=== PATIENT | male | born 1935 | race African-American/Black ===

== ENCOUNTER 2020-11-25 11:25 | Inpatient (IN) | payer OTHER ==
[~2020-11-25] VITALS: Ht 170.2 cm; Wt 55.2 kg
[2020-11-25] VITALS (40 sets, daily range): BP systolic 58–177; BP diastolic 23–117
[2020-11-25] MEDS ORDERED: SODIUM CHLORIDE 0.9% 1,800 ML IV ONE (12:00)
[2020-11-25] MEDS ORDERED: PROPOFOL 10MG/ML 100ML 100 ML IV PRN ×2 (12:00→18:30)
[2020-11-25] MEDS ORDERED: NOREPINEPHRINE 8MG/250ML PMX 250 ML IV ONE ×2 (12:15→12:30)
[2020-11-25] MEDS ORDERED: VANCOMYCIN 750 MG PREMIX 150 ML IV SCH (12:15)
[2020-11-25] MEDS ORDERED: PIPERACILLIN/TAZ 3.375G PREMIX 50 ML IV NR (12:15)
[2020-11-25] MEDS ORDERED: PIPERACILLIN/TAZOBACTAM 3.375GM/50ML PREMIX IV ONE (12:15)
[2020-11-25 12:29] LABS: BG BASE EXCESS -5.2 mmol/L (-2.0-2.0); BG CARBOXYHEMOGLOBIN 0.2 % (0.5-1.5); BG DEOXYHEMOGLOBIN 0.5 % (0.0-5.0); BG FRACTION INSPIRED OXYGEN 100; BG HCO3 ACT 17.4 mmol/L (22.0-26.0); BG METHEMOGLOBIN 0.1 % (0.0-1.5); BG OXYGEN SATURATION 99.5 % (92.0-98.5); BG OXYHEMOGLOBIN 99.2 % (94.0-97.0); BG PCO2 26.8 mmHg (35.0-45.0); BG PH 7.431 (7.350-7.450); BG PO2 > 602.7 mmHg (75.0-100.0); BG SAMPLE SITE LEFT RADIAL; BG TOTAL HEMOGLOBIN 13.9 g/dL (12.0-18.0); BG VENT MODE VENT - AC
[2020-11-25 12:36] LABS: BASOPHILS % 0.2 % (0.0-2.0); EOSINOPHILS % 0.1 % (0.0-5.0); HEMATOCRIT. 41.1 % (42.0-52.0); HEMOGLOBIN. 13.7 g/dL (14.0-18.0); LYMPHOCYTES % 11.4 % (20.0-50.0); MEAN CORPUSCULAR HEMOGLOBIN 33.1 pg (28.0-32.0); MEAN CORPUSCULAR VOLUME 98.9 fL (80.0-94.0); MEAN PLATELET VOLUME 10.2 fl (7.4-10.4); MONOCYTES % 5.9 % (2.0-8.0); NEUTROPHILS % 82.4 % (40.0-76.0); PLATELET 156 x1000/uL (130-400); RED BLOOD CELL COUNT 4.15 mill/uL (4.7-6.1); RED CELL DISTRIBUTION WIDTH 15.2 % (11.6-14.6)
[2020-11-25 12:43] LABS: CHLORIDE 120 mEq/L (98-107)
[2020-11-25 12:47] LABS: ETHANOL BLOOD < 10 mg/dL
[2020-11-25] MEDS ORDERED: LIDOCAINE HCL 1% 20ML VIAL (Pyxis) INJ ONE (13:38)
[2020-11-25 13:49] LABS: CLARITY URINE TURBID (CLEAR); COLOR URINE YELLOW (YELLOW); KETONES URINE TRACE (NEGATIVE); LEUKOCYTE ESTERASE URINE 3+ (NEGATIVE); NITRITE URINE NEGATIVE (NEGATIVE); OCCULT BLOOD URINE 2+ (NEGATIVE); PH URINE 5.5 (4.5-8.0); PROTEIN URINE 2+ (NEGATIVE); SPECIFIC GRAVITY URINE 1.017 (1.005-1.030); UROBILINOGEN URINE 0.2 E.U./dL (0.2-1.0)
[2020-11-25 14:12] LABS: *AMPHETAMINES SCREEN URINE NEGATIVE (NEGATIVE); *BARBITURATES SCREEN URINE NEGATIVE (NEGATIVE); *BENZODIAZEPINES SCREEN URINE NEGATIVE (NEGATIVE); *COCAINE SCREEN URINE NEGATIVE (NEGATIVE); CANNABINOID URINE SCREEN NEGATIVE (NEGATIVE); METHADONE URINE SCREEN NEGATIVE (NEGATIVE); OPIATES URINE SCREEN NEGATIVE (NEGATIVE); PHENCYCLIDINE URINE SCREEN NEGATIVE (NEGATIVE)
[2020-11-25] MEDS ORDERED: IPRATROPIUM/ALBUTEROL 0.5-3(2.5)MG/3ML NEB HHN PRN (16:15)
[2020-11-25] MEDS ORDERED: ACETAMINOPHEN 650MG/20.3ML UDC GT PRN ×2 (16:15)
[2020-11-25] MEDS ORDERED: ONDANSETRON HCL 4MG/2ML INJ IV PRN (16:15)
[2020-11-25] MEDS ORDERED: CLONIDINE 0.1MG TABLET PO PRN (16:15)
[2020-11-25] MEDS ORDERED: CEFEPIME 1,000 MG in DEXTROSE 5% WATER 50 ML IV SCH (17:00)
[2020-11-25] MEDS ORDERED: LISI20TA31 PO (18:14)
[2020-11-25] MEDS ORDERED: KEPP500 PO (18:14)
[2020-11-25] MEDS ORDERED: CLOP75TA33 PO (18:14)
[2020-11-25] MEDS ORDERED: TAMS-11 PO (18:14)
[2020-11-25] MEDS ORDERED: AMLO10TA80 PO (18:14)
[2020-11-25] MEDS ORDERED: ATOR20TA PO (18:14)
[2020-11-25] MEDS: NOREPINEPHRINE 32 MG in DEXT 5% WATER 218 ML IV PRN ×2 (18:50→20:17)
[2020-11-25] MEDS: SODIUM CHLORIDE 0.45% 1,000 ML IV SCH (20:08)
[2020-11-25] MEDS: FENTANYL CITRATE/PF 2,500 MCG in SODIUM CHLORIDE 0.9% 200 ML IV PRN (20:19)
[2020-11-25] MEDS: PANTOPRAZOLE SODIUM 40 MG/VIAL IV SCH (20:32)
[2020-11-25] MEDS ORDERED: DEXTROSE 50% WATER 50ML SYRINGE IV PRN (21:00)
[2020-11-25 21:07] LABS: CREATINE KINASE MB FRACTION 11.7 ng/mL (0.5-3.6)
[2020-11-25] MEDS: CEFEPIME 1,000 MG in DEXTROSE 5% WATER 50 ML IV SCH (21:20)
[2020-11-25] MEDS ORDERED: LEVETIRACETAM 500MG PREMIX 100 ML IV NR (22:30)
[2020-11-26] VITALS (98 sets, daily range): BP systolic 38–173; BP diastolic 15–137
[2020-11-26] MEDS: INSULIN LISPRO 100 UNITS/ML SUBCUT SCH ×4 (00:27→23:20)
[2020-11-26] MEDS: NOREPINEPHRINE 32 MG in DEXT 5% WATER 218 ML IV PRN ×2 (01:20→16:43)
[2020-11-26] MEDS: SODIUM CHLORIDE 0.45% 1,000 ML IV SCH ×4 (02:48→21:00)
[2020-11-26] MEDS: BLOOD SUGAR DIAGNOSTIC STRIP TEST SCH ×5 (06:00→23:20)
[2020-11-26 06:15] LABS: HEMATOCRIT. 39.6 % (42.0-52.0); HEMOGLOBIN. 12.8 g/dL (14.0-18.0); MEAN CORPUSCULAR HEMOGLOBIN 32.4 pg (28.0-32.0); MEAN CORPUSCULAR VOLUME 100.1 fL (80.0-94.0); MEAN PLATELET VOLUME 9.8 fl (7.4-10.4); PLATELET 118 x1000/uL (130-400); RED BLOOD CELL COUNT 3.96 mill/uL (4.7-6.1); RED CELL DISTRIBUTION WIDTH 15.3 % (11.6-14.6)
[2020-11-26 06:31] LABS: PHOSPHORUS 4.1 mg/dL (2.5-4.9)
[2020-11-26] MEDS: PANTOPRAZOLE SODIUM 40 MG/VIAL IV SCH (08:33)
[2020-11-26] MEDS: LEVETIRACETAM 500MG PREMIX 100 ML IV SCH ×2 (08:34→21:00)
[2020-11-26 08:45] LABS: BG BASE EXCESS -2.3 mmol/L (-2.0-2.0); BG CARBOXYHEMOGLOBIN 0.3 % (0.5-1.5); BG DEOXYHEMOGLOBIN 0.8 % (0.0-5.0); BG FRACTION INSPIRED OXYGEN 40; BG HCO3 ACT 22.2 mmol/L (22.0-26.0); BG METHEMOGLOBIN 0.5 % (0.0-1.5); BG OXYGEN SATURATION 99.2 % (92.0-98.5); BG OXYHEMOGLOBIN 98.4 % (94.0-97.0); BG PCO2 37.5 mmHg (35.0-45.0); BG PH 7.391 (7.350-7.450); BG PO2 217.1 mmHg (75.0-100.0); BG SAMPLE SITE RIGHT RADIAL; BG VENT MODE VENT - AC
[2020-11-26] MEDS ORDERED: LEVETIRACETAM 500 MG in SODIUM CHLORIDE 0.9% 100 ML IV SCH (09:00)
[2020-11-26 09:23] LABS: PLATELET ESTIMATE DECREASED
[2020-11-26] MEDS ORDERED: DOPAMINE 800MG PREMIX (DOUBLE) 250 ML IV PRN ×2 (10:15→12:04)
[2020-11-26] MEDS: MIDODRINE HCL 5MG TABLET PO SCH ×3 (11:42→17:31)
[2020-11-26] MEDS: MIDAZOLAM HCL 100 MG in SODIUM CHLORIDE 0.9% 80 ML IV PRN (13:01)
[2020-11-26 13:37] LABS: AMYLASE 94 IU/L (25-115)
[2020-11-26] MEDS: LACTULOSE 20G/30ML UDC PO SCH ×2 (13:46→22:00)
[2020-11-26] MEDS: ENOXAPARIN 30MG/0.3ML SYR SUBCUT SCH (13:47)
[2020-11-26] MEDS: CEFEPIME 1,000 MG in DEXTROSE 5% WATER 50 ML IV SCH (21:00)
[2020-11-27] VITALS (97 sets, daily range): BP systolic 34–170; BP diastolic 14–105
[2020-11-27] MEDS: SODIUM CHLORIDE 0.45% 1,000 ML IV SCH ×3 (05:27→20:37)
[2020-11-27] MEDS: INSULIN LISPRO 100 UNITS/ML SUBCUT SCH ×4 (06:00→23:03)
[2020-11-27] MEDS: NOREPINEPHRINE 32 MG in DEXT 5% WATER 218 ML IV PRN (06:18)
[2020-11-27 06:37] LABS: CHLORIDE 117 mEq/L (98-107)
[2020-11-27 06:43] LABS: AMYLASE 74 IU/L (25-115)
[2020-11-27 06:46] LABS: PHOSPHORUS 2.8 mg/dL (2.5-4.9)
[2020-11-27] MEDS: LACTULOSE 20G/30ML UDC PO SCH ×3 (06:46→23:02)
[2020-11-27] MEDS: BLOOD SUGAR DIAGNOSTIC STRIP TEST SCH ×4 (06:48→23:03)
[2020-11-27 06:50] LABS: HEMATOCRIT. 29.2 % (42.0-52.0); MEAN CORPUSCULAR HEMOGLOBIN 32.9 pg (28.0-32.0); MEAN CORPUSCULAR VOLUME 95.9 fL (80.0-94.0); MEAN PLATELET VOLUME 10.1 fl (7.4-10.4); PLATELET 84 x1000/uL (130-400); RED BLOOD CELL COUNT 3.04 mill/uL (4.7-6.1); RED CELL DISTRIBUTION WIDTH 14.4 % (11.6-14.6)
[2020-11-27] MEDS: MIDODRINE HCL 5MG TABLET PO SCH ×2 (08:36→12:51)
[2020-11-27] MEDS: PANTOPRAZOLE SODIUM 40 MG/VIAL IV SCH (08:37)
[2020-11-27] MEDS: LEVETIRACETAM 500MG PREMIX 100 ML IV SCH ×2 (08:37→20:36)
[2020-11-27] MEDS: ENOXAPARIN 30MG/0.3ML SYR SUBCUT SCH (09:00)
[2020-11-27] MEDS ORDERED: POTASSIUM CHLORIDE 20MEQ/PACKET PO NR (10:00)
[2020-11-27 11:15] LABS: PLATELET ESTIMATE DECREASED
[2020-11-27] MEDS: METOCLOPRAMIDE HCL 10MG/2ML VIAL IV SCH ×2 (17:49→23:02)
[2020-11-27] MEDS: CEFTRIAXONE 1,000 MG in DEXTROSE 5% WATER 50 ML IV SCH (20:36)
[2020-11-28] VITALS (94 sets, daily range): BP systolic 81–159; BP diastolic 41–126
[2020-11-28] MEDS: BLOOD SUGAR DIAGNOSTIC STRIP TEST SCH ×3 (05:08→17:34)
[2020-11-28] MEDS: METOCLOPRAMIDE HCL 10MG/2ML VIAL IV SCH ×3 (05:08→17:20)
[2020-11-28] MEDS: LACTULOSE 20G/30ML UDC PO SCH ×2 (05:08→13:22)
[2020-11-28] MEDS: SODIUM CHLORIDE 0.45% 1,000 ML IV SCH ×3 (05:27→20:45)
[2020-11-28 05:34] LABS: HEMATOCRIT. 26.3 % (42.0-52.0); HEMOGLOBIN. 9.2 g/dL (14.0-18.0); MEAN CORPUSCULAR HEMOGLOBIN 33.2 pg (28.0-32.0); MEAN CORPUSCULAR VOLUME 95.5 fL (80.0-94.0); MEAN PLATELET VOLUME 10.7 fl (7.4-10.4); PLATELET 79 x1000/uL (130-400); RED BLOOD CELL COUNT 2.76 mill/uL (4.7-6.1); RED CELL DISTRIBUTION WIDTH 14.5 % (11.6-14.6)
[2020-11-28] MEDS: INSULIN LISPRO 100 UNITS/ML SUBCUT SCH ×3 (06:00→17:34)
[2020-11-28] MEDS: MIDAZOLAM HCL 100 MG in SODIUM CHLORIDE 0.9% 80 ML IV PRN (07:41)
[2020-11-28] MEDS ORDERED: ENOXAPARIN 30MG/0.3ML SYR SUBCUT SCH (09:00)
[2020-11-28] MEDS: PANTOPRAZOLE SODIUM 40 MG/VIAL IV SCH (09:40)
[2020-11-28] MEDS: LEVETIRACETAM 500MG PREMIX 100 ML IV SCH ×2 (09:40→20:44)
[2020-11-28 11:31] LABS: PLATELET ESTIMATE DECREASED
[2020-11-28] MEDS ORDERED: POTASSIUM CHLORIDE INJ 40 MEQ in DEXT 5% WATER 250 ML IV NR (12:00)
[2020-11-28] MEDS: FENTANYL CITRATE/PF 2,500 MCG in SODIUM CHLORIDE 0.9% 200 ML IV PRN (17:22)
[2020-11-28] MEDS: CEFTRIAXONE 1,000 MG in DEXTROSE 5% WATER 50 ML IV SCH (20:43)
[2020-11-29] VITALS (98 sets, daily range): BP systolic 47–213; BP diastolic 32–153
[2020-11-29] MEDS: METOCLOPRAMIDE HCL 10MG/2ML VIAL IV SCH ×4 (00:22→19:02)
[2020-11-29] MEDS: BLOOD SUGAR DIAGNOSTIC STRIP TEST SCH ×4 (00:22→18:59)
[2020-11-29] MEDS: SODIUM CHLORIDE 0.45% 1,000 ML IV SCH (04:26)
[2020-11-29] MEDS: INSULIN LISPRO 100 UNITS/ML SUBCUT SCH ×4 (06:00→18:00)
[2020-11-29 06:06] LABS: HEMATOCRIT. 33.5 % (42.0-52.0); MEAN CORPUSCULAR HEMOGLOBIN 31.7 pg (28.0-32.0); PLATELET 96 x1000/uL (130-400); RED BLOOD CELL COUNT 3.46 mill/uL (4.7-6.1); RED CELL DISTRIBUTION WIDTH 14.9 % (11.6-14.6)
[2020-11-29 07:35] LABS: CHLORIDE 117 mEq/L (98-107)
[2020-11-29] MEDS: PANTOPRAZOLE SODIUM 40 MG/VIAL IV SCH (09:03)
[2020-11-29] MEDS: LEVETIRACETAM 500MG PREMIX 100 ML IV SCH (09:03)
[2020-11-29] MEDS ORDERED: POTASSIUM PHOS,M-BASIC-D-BASIC 30 MMOL in DEXT 5% WATER 500 ML IV SCH (10:00)
[2020-11-29 10:42] LABS: BG BASE EXCESS -7.2 mmol/L (-2.0-2.0); BG CARBOXYHEMOGLOBIN 0.1 % (0.5-1.5); BG DEOXYHEMOGLOBIN 2.5 % (0.0-5.0); BG FRACTION INSPIRED OXYGEN 30; BG HCO3 ACT 15.9 mmol/L (22.0-26.0); BG METHEMOGLOBIN 1.1 % (0.0-1.5); BG OXYGEN SATURATION 97.5 % (92.0-98.5); BG OXYHEMOGLOBIN 96.3 % (94.0-97.0); BG PCO2 25.6 mmHg (35.0-45.0); BG PH 7.412 (7.350-7.450); BG PO2 119.1 mmHg (75.0-100.0); BG SAMPLE SITE RIGHT RADIAL; BG TOTAL HEMOGLOBIN 11.3 g/dL (12.0-18.0); BG VENT MODE VENT - AC
[2020-11-29 10:44] LABS: PLATELET ESTIMATE DECREASED
[2020-11-29] MEDS: POTASSIUM CHLORIDE IV SCH (15:32)
[2020-11-29] MEDS: WATER IV SCH (15:32)
[2020-11-29] MEDS: DEXTROSE 5% IV SCH (15:32)
[2020-11-29] MEDS: SODIUM BICARBONATE IV SCH (15:32)
[2020-11-29] MEDS: CEFTRIAXONE 1,000 MG in DEXTROSE 5% WATER 50 ML IV SCH (20:54)
[2020-11-29] MEDS: FENTANYL CITRATE/PF 2,500 MCG in SODIUM CHLORIDE 0.9% 200 ML IV PRN (21:09)
[2020-11-29] MEDS: LEVETIRACETAM 1,000 MG in SODIUM CHLORIDE 0.9% 100 ML IV SCH (21:10)
[2020-11-29] MEDS: MIDAZOLAM HCL 100 MG in SODIUM CHLORIDE 0.9% 80 ML IV PRN (21:10)
[2020-11-30] VITALS (62 sets, daily range): BP systolic 85–138; BP diastolic 40–94
[2020-11-30] MEDS: BLOOD SUGAR DIAGNOSTIC STRIP TEST SCH ×4 (00:23→17:49)
[2020-11-30] MEDS: METOCLOPRAMIDE HCL 10MG/2ML VIAL IV SCH ×4 (00:24→18:00)
[2020-11-30] MEDS: NOREPINEPHRINE 32 MG in DEXT 5% WATER 218 ML IV PRN (04:08)
[2020-11-30 05:46] LABS: BASOPHILS % 0.2 % (0.0-2.0); EOSINOPHILS % 2.3 % (0.0-5.0); HEMATOCRIT. 29.3 % (42.0-52.0); HEMOGLOBIN. 9.8 g/dL (14.0-18.0); LYMPHOCYTES % 7.2 % (20.0-50.0); MEAN CORPUSCULAR VOLUME 95.4 fL (80.0-94.0); MEAN PLATELET VOLUME 10.2 fl (7.4-10.4); MONOCYTES % 9.1 % (2.0-8.0); NEUTROPHILS % 81.2 % (40.0-76.0); PLATELET 84 x1000/uL (130-400); RED BLOOD CELL COUNT 3.07 mill/uL (4.7-6.1); RED CELL DISTRIBUTION WIDTH 14.9 % (11.6-14.6)
[2020-11-30] MEDS: INSULIN LISPRO 100 UNITS/ML SUBCUT SCH ×4 (06:00→17:49)
[2020-11-30 06:04] LABS: CHLORIDE 115 mEq/L (98-107)
[2020-11-30 06:19] LABS: PHOSPHORUS 2.4 mg/dL (2.5-4.9)
[2020-11-30] MEDS: WATER IV SCH (07:28)
[2020-11-30] MEDS: POTASSIUM CHLORIDE IV SCH (07:28)
[2020-11-30] MEDS: DEXTROSE 5% IV SCH (07:28)
[2020-11-30] MEDS: SODIUM BICARBONATE IV SCH (07:28)
[2020-11-30 08:29] LABS: BG BASE EXCESS -2.8 mmol/L (-2.0-2.0); BG CARBOXYHEMOGLOBIN 0.3 % (0.5-1.5); BG FRACTION INSPIRED OXYGEN 30; BG HCO3 ACT 20.1 mmol/L (22.0-26.0); BG METHEMOGLOBIN 0.6 % (0.0-1.5); BG OXYHEMOGLOBIN 98.1 % (94.0-97.0); BG PCO2 29.1 mmHg (35.0-45.0); BG PH 7.458 (7.350-7.450); BG PO2 195.4 mmHg (75.0-100.0); BG SAMPLE SITE RIGHT RADIAL; BG TOTAL HEMOGLOBIN 10.9 g/dL (12.0-18.0); BG VENT MODE VENT - AC
[2020-11-30] MEDS ORDERED: POTASSIUM CHLORIDE INJ 20 MEQ in DEXTROSE 5% WATER 1,000 ML IV SCH (09:00)
[2020-11-30] MEDS: PANTOPRAZOLE SODIUM 40 MG/VIAL IV SCH (09:11)
[2020-11-30] MEDS: LEVETIRACETAM 1,000 MG in SODIUM CHLORIDE 0.9% 100 ML IV SCH ×2 (09:11→21:03)
[2020-11-30] MEDS ORDERED: DEXT 5% IV NR (10:00)
[2020-11-30] MEDS ORDERED: DEXT 5% WATER + KCL 20MEQ/L 1,000 ML IV SCH (10:00)
[2020-11-30] MEDS ORDERED: POTASSIUM PHOS M BASIC D BASIC IV NR (10:00)
[2020-11-30] MEDS ORDERED: WATER IV NR (10:00)
[2020-11-30] MEDS ORDERED: FENTANYL CITRATE/PF 2,500 MCG in SODIUM CHLORIDE 0.9% 200 ML IV PRN (20:15)
[2020-11-30] MEDS: CEFTRIAXONE 1,000 MG in DEXTROSE 5% WATER 50 ML IV SCH (20:16)
[2020-11-30] MEDS ORDERED: ZONISAMIDE 100MG/10ML ORAL SYR GT SCH (22:00)
== END 2020-11-30 22:45 | disposition short-term general hospital (02) | DRG 870 ==
LOC: ER 11:25 → CVICU 13:52 → ENRESERV 14:52 → CANRESERV 14:52
PROVIDERS: ADMIT Internal Medicine; ATTEND Internal Medicine
PROC: 5A1955Z Respiratory Ventilation, Greater than 96 Consecutive Hours (ICD-10-PCS; principal; 2020-11-25)
PROC: 02HV33Z Insertion of Infusion Device into Superior Vena Cava, Percutaneous Approach (ICD-10-PCS; 2020-11-25)
PROC: B548ZZA Ultrasonography of Superior Vena Cava, Guidance (ICD-10-PCS; 2020-11-25)
PROC: 0BH17EZ Insertion of Endotracheal Airway into Trachea, Via Natural or Artificial Opening (ICD-10-PCS; 2020-11-25)
DX: A41.9 Sepsis, unspecified organism (principal); J96.01 Acute respiratory failure with hypoxia; K85.90 Acute pancreatitis without necrosis or infection, unspecified; R65.21 Severe sepsis with septic shock; G92 Toxic encephalopathy; E44.1 Mild protein-calorie malnutrition; E72.20 Disorder of urea cycle metabolism, unspecified; E87.0 Hyperosmolality and hypernatremia; E87.2 Acidosis; M62.82 Rhabdomyolysis; N17.9 Acute kidney failure, unspecified; Z68.1 Body mass index [BMI] 19.9 or less, adult; D53.9 Nutritional anemia, unspecified; D69.59 Other secondary thrombocytopenia; E86.1 Hypovolemia; E87.6 Hypokalemia; F03.90 Unspecified dementia, unspecified severity, without behavioral disturbance, psychotic disturbance, mood disturbance, and anxiety; G40.909 Epilepsy, unspecified, not intractable, without status epilepticus; I10 Essential (primary) hypertension; J44.9 Chronic obstructive pulmonary disease, unspecified; Z20.822 Contact with and (suspected) exposure to COVID-19; K76.89 Other specified diseases of liver; N40.0 Benign prostatic hyperplasia without lower urinary tract symptoms; Z66 Do not resuscitate; E83.39 Other disorders of phosphorus metabolism; E78.00 Pure hypercholesterolemia, unspecified; K52.9 Noninfective gastroenteritis and colitis, unspecified; N30.90 Cystitis, unspecified without hematuria; Z82.49 Family history of ischemic heart disease and other diseases of the circulatory system; Z86.73 Personal history of transient ischemic attack (TIA), and cerebral infarction without residual deficits; Z78.1 Physical restraint status; B96.20 Unspecified Escherichia coli [E. coli] as the cause of diseases classified elsewhere; I95.9 Hypotension, unspecified
CPT/HCPCS: 36415; 36600; 70551; 71045; 71250; 74018; 74176; 76700; 76937; 78580; 80048; 80053; 80061; 80076; 80305; 80307; 80320; 80329; 81003; 82105; 82140; 82150; 82270; 82375; 82378; 82550; 82553; 82607; 82746; 82805; 82962; 83036; 83605; 83735; 83880; 84100; 84145; 84443; 84450; 84478; 84484; 85025; 85362; 85379; 85384; 86022; 86301; 87070; 87077; 87106; 87186; 87426; 93005; 93306; 94002; 94003; 94640; 99291; A6261; C1725; C1769; C9113; J0692; J0696; J1265; J1650; J1815; J1953; J2250; J2543; J2704; J2765; J3010; J3370; J3480; J3490; J7030; J7050; J7060; J7070; A4315; G0480